=== PATIENT | female | born 1955 | race Caucasian/White ===

== ENCOUNTER 2017-02-21 15:27 | Outpatient (CLI) | payer MEDICAID ==
--- NOTE | 2017-02-23 12:47 | XRAY Report ---
RIGHT FOOT, THREE VIEWS: 02/21/2017 CLINICAL HISTORY: Pain in the right foot. FINDINGS: Mild soft tissue swelling is noted about the dorsal aspect of the right foot. Minimal def ormity is noted on AP projection in the mid shaft of the right fifth metatarsal. On lateral projecti on, a definite oblique fracture line is seen through the mid shaft of the right fifth metatarsal, rep resenting a recent fracture. Mild narrowing of the right first MP joint is seen. Moderate to large plantar calcaneal spur is noted. IMPRESSION: 1. ACUTE TO RECENT RELATIVELY NONDISPLACED OBLIQUE FRACTURE IS SEEN IN THE MID SHAFT OF THE RIGHT FI FTH METATARSAL. 2. MODERATE-SIZED PLANTAR CALCANEAL SPUR. JOB #: [id number] EXT JOB #:[id number]
== END 2017-02-21 15:28 | disposition home or self-care (01) ==
LOC: DI.S 15:27
PROVIDERS: ATTEND Nurse Practitioner Family
DX: S92.354A Nondisplaced fracture of fifth metatarsal bone, right foot, initial encounter for closed fracture (principal); M77.31 Calcaneal spur, right foot

== ENCOUNTER 2017-05-11 08:58 | Outpatient (CLI) | payer MEDICAID ==
--- NOTE | 2017-05-11 11:06 | XRAY Report ---
THREE-VIEW RIGHT FOOT: 05/11/2017 CLINICAL INDICATION: Pain. FINDINGS: AP, lateral, oblique views of the right foot demonstrate interval increase in displacement of 5th metatarsal fracture from 02/21/2017. Callus formation is present. Mild osteoarthritis is ag ain noted. Plantar calcaneal spurring is seen. IMPRESSION: INTERVAL INCREASE IN DISPLACEMENT OF 5TH METATARSAL FRACTURE, NOW WITH CALLUS FORMATION. JOB #: [id number] EXT JOB #:[id number]
== END 2017-05-11 08:59 | disposition home or self-care (01) ==
LOC: DI.S 08:58
PROVIDERS: ATTEND Nurse Practitioner Family
DX: S92.351D Displaced fracture of fifth metatarsal bone, right foot, subsequent encounter for fracture with routine healing (principal)

== ENCOUNTER 2017-05-31 11:12 | Outpatient (CLI) | payer MEDICAID ==
[2017-05-31 17:57] LABS: BASOPHILS % (AUTO) 0.5 %; EOSINOPHILS # (AUTO) 0.2 10^3/uL (0.0-0.7); EOSINOPHILS % (AUTO) 2.5 %; HCT - HEMATOCRIT 43.7 % (37.0-47.0); HGB - HEMOGLOBIN 14.7 g/dL (12.0-16.0); LYMPHOCYTES # (AUTO) 2.2 10^3/uL (1.5-3.5); LYMPHOCYTES % (AUTO) 35.6 %; MEAN CORPUSCULAR HEMOGLOBIN 30.8 pg (27.0-31.0); MEAN CORPUSCULAR HGB CONC 33.6 g/dL (32.0-36.0); MEAN CORPUSCULAR VOLUME 91.5 fL (81.0-99.0); MEAN PLATELET VOLUME 10.8 fL (7.9-10.8); MONOCYTES # (AUTO) 0.6 10^3/uL (0.0-1.0); MONOCYTES % (AUTO) 9.5 %; NEUTROPHILS # (AUTO) 3.3 10^3/uL (1.5-6.6); NEUTROPHILS % (AUTO) 51.9 %; RED BLOOD COUNT 4.78 10^6/uL (4.20-5.40); RED CELL DISTRIBUTION WIDTH 13.1 % (12.0-15.0); UNCORRECTED WHITE BLOOD COUNT 6.3 x10^3/uL; WHITE BLOOD COUNT 6.3 x10^3/uL (4.8-10.8)
[2017-05-31 18:47] LABS: ALBUMIN/GLOBULIN RATIO 1.4 (1.0-2.2); BILIRUBIN,TOTAL 1.2 mg/dL (0.2-1.0); BUN - BLOOD UREA NITROGEN 14 mg/dL (6-20); CALCIUM 9.2 mg/dL (8.5-10.3); CARBON DIOXIDE - CO2 30 mmol/L (21-32); CHLORIDE 102 mmol/L (101-111); CHOL/HDL RATIO 5.8 (<4.4); CHOLESTEROL 203 mg/dL; CREATININE 0.7 mg/dL (0.4-1.0); GFR - MDRD 85 (>89); GLUCOSE 91 mg/dL (70-100); HDL CHOLESTEROL 35 mg/dL; LDL/HDL RATIO 3.7 (<4.4); POTASSIUM 3.4 mmol/L (3.5-5.0); SODIUM 140 mmol/L (135-145); TOTAL PROTEIN 6.9 g/dL (6.7-8.2); TRIGLYCERIDES 198 mg/dL; VLDL CHOLESTEROL 40 mg/dL
== END 2017-05-31 11:13 | disposition home or self-care (01) ==
LOC: LAB.F 11:12
PROVIDERS: ATTEND Nurse Practitioner Family
DX: E78.5 Hyperlipidemia, unspecified (principal); I10 Essential (primary) hypertension
CPT/HCPCS: 36415; 80053; 80061; 84443; 85025

== ENCOUNTER 2018-02-02 12:06 | Outpatient (CLI) | payer MEDICAID ==
--- NOTE | 2018-02-02 12:30 | XRAY Report ---
Procedure Date: 02/02/2018 Accession Number: [id number] / [id number] Procedure: XRS - Knee 4 View RT CPT Code: FULL RESULT: EXAM: Knee 4 View RT DATE: 02/02/2018 12:22 PM CLINICAL HISTORY: PAIN IN RIGHT KNEE COMPARISON: None. TECHNIQUE: 4 views. FINDINGS: Bones: Normal. No fractures or bone lesions. Joints: Normal. No effusion. No subluxations. Soft Tissues: Normal. No soft tissue swelling. IMPRESSION: Normal knee radiography. RADIA
== END 2018-02-02 12:07 | disposition home or self-care (01) ==
LOC: DI.S 12:06
PROVIDERS: ATTEND Nurse Practitioner Family
DX: M25.561 Pain in right knee (principal)

== ENCOUNTER 2018-08-24 08:07 | Outpatient (CLI) | payer MEDICAID ==
[2018-08-24 10:39] LABS: BASOPHILS # (AUTO) 0.1 10^3/uL (0.0-0.1); BASOPHILS % (AUTO) 0.8 %; EOSINOPHILS # (AUTO) 0.2 10^3/uL (0.0-0.7); EOSINOPHILS % (AUTO) 3.1 %; HGB - HEMOGLOBIN 14.9 g/dL (12.0-16.0); LYMPHOCYTES # (AUTO) 2.5 10^3/uL (1.5-3.5); LYMPHOCYTES % (AUTO) 33.8 %; MEAN CORPUSCULAR HGB CONC 35.5 g/dL (32.0-36.0); MEAN PLATELET VOLUME 11.2 fL (7.9-10.8); MONOCYTES # (AUTO) 0.7 10^3/uL (0.0-1.0); MONOCYTES % (AUTO) 9.7 %; NEUTROPHILS # (AUTO) 3.9 10^3/uL (1.5-6.6); NEUTROPHILS % (AUTO) 52.6 %; PLT - PLATELET COUNT 237 10^3/uL (130-450); RED BLOOD COUNT 4.67 10^6/uL (4.20-5.40); RED CELL DISTRIBUTION WIDTH 13.2 % (12.0-15.0); WHITE BLOOD COUNT 7.5 x10^3/uL (4.8-10.8)
[2018-08-24 10:43] LABS: ALBUMIN 4.1 g/dL (3.2-5.5); ALBUMIN/GLOBULIN RATIO 1.3 (1.0-2.2); ALKALINE PHOSPHATASE 110 IU/L (42-121); ALT ALANINE AMINOTRANSFERASE 29 IU/L (10-60); AST ASPARTATE AMINOTRANSFERASE 28 IU/L (10-42); BILIRUBIN,TOTAL 1.3 mg/dL (0.2-1.0); BUN - BLOOD UREA NITROGEN 18 mg/dL (6-20); CALCIUM 9.4 mg/dL (8.5-10.3); CARBON DIOXIDE - CO2 30 mmol/L (21-32); CHLORIDE 97 mmol/L (101-111); CHOL/HDL RATIO 5.4 (<4.4); CHOLESTEROL 210 mg/dL; CREATININE 0.8 mg/dL (0.4-1.0); GFR - MDRD 73 (>89); GLUCOSE 114 mg/dL (70-100); HDL CHOLESTEROL 39 mg/dL; LDL CHOLESTEROL,CALCULATED 119 mg/dL; LDL/HDL RATIO 3.1 (<4.4); SODIUM 138 mmol/L (135-145); TOTAL PROTEIN 7.2 g/dL (6.7-8.2); VLDL CHOLESTEROL 52 mg/dL
== END 2018-08-24 08:08 | disposition home or self-care (01) ==
LOC: LAB.F 08:07
PROVIDERS: ATTEND Nurse Practitioner Family
DX: I10 Essential (primary) hypertension (principal); E78.5 Hyperlipidemia, unspecified
CPT/HCPCS: 36415; 80053; 80061; 83721; 84443; 85025

== ENCOUNTER 2018-11-29 14:00 | Outpatient (CLI) | payer MEDICAID | END 2018-11-29 14:01 | disposition home or self-care (01) | LOC: LAB.F 14:00 | PROVIDERS: ATTEND Nurse Practitioner Family | DX: Z79.899 Other long term (current) drug therapy (principal) | CPT/HCPCS: 36415; 82306 ==

== ENCOUNTER 2018-12-19 13:03 | Emergency (ER) | payer MEDICAID ==
[2018-12-19 13:28] LABS: BASOPHILS # (AUTO) 0.1 10^3/uL (0.0-0.1); BASOPHILS % (AUTO) 0.8 %; EOSINOPHILS # (AUTO) 0.1 10^3/uL (0.0-0.7); EOSINOPHILS % (AUTO) 1.4 %; HGB - HEMOGLOBIN 14.7 g/dL (12.0-16.0); LYMPHOCYTES # (AUTO) 2.7 10^3/uL (1.5-3.5); LYMPHOCYTES % (AUTO) 40.5 %; MEAN CORPUSCULAR HEMOGLOBIN 31.4 pg (27.0-31.0); MEAN CORPUSCULAR VOLUME 89.7 fL (81.0-99.0); MEAN PLATELET VOLUME 10.3 fL (7.9-10.8); MONOCYTES # (AUTO) 0.7 10^3/uL (0.0-1.0); MONOCYTES % (AUTO) 10.2 %; NEUTROPHILS # (AUTO) 3.1 10^3/uL (1.5-6.6); NEUTROPHILS % (AUTO) 47.1 %; PLT - PLATELET COUNT 254 10^3/uL (130-450); RED BLOOD COUNT 4.67 10^6/uL (4.20-5.40); RED CELL DISTRIBUTION WIDTH 12.9 % (12.0-15.0); WHITE BLOOD COUNT 6.6 x10^3/uL (4.8-10.8)
--- NOTE | 2018-12-19 13:28 | ED Physician Documentation ---
History of Present Illness - Stated complaint Stated Complaint: SOA/UPPER ABD PX - Chief complaint Chief Complaint: Cardiac - History obtained from History obtained from: Patient - History of Present Illness Pain level max: 4 Pain level now: 0 Improved by: nothing Worsened by: palpation - Additonal information Additional information: 4 days ago states tasted "blood" in her mouth. then felt lightheaded 3 days ago. yesterday started having epigastric pain. Was better last night and today states "I feel off". Has had nausea. but no vomiting. normal BM. Decreased appetite. H/o gastric bypass 20 years ago. take celebrex daily. Review of Systems Ten Systems: 10 systems reviewed and negative Constitutional: denies: Fever, Chills Nose: denies: Rhinorrhea / runny nose, Congestion Throat: denies: Sore throat GI: denies: Vomiting, Hematemesis, Bloody / black stool Skin: denies: Rash Musculoskeletal: denies: Neck pain, Back pain Neurologic: denies: Headache PD PAST MEDICAL HISTORY - Past Medical History Cardiovascular: None Endocrine/Autoimmune: None Psych: None Musculoskeletal: Osteoarthritis - Past Surgical History Ortho: Other - Present Medications Home Medications: Ambulatory Orders Medication Instructions Recorded Confirmed Esomeprazole Magnesium [Nexium 20 mg PO DAILY #30 capsule. 12/19/18 24Hr] Famotidine [Pepcid] 20 mg PO BID #60 tablet 12/19/18 - Allergies Allergies/Adverse Reactions: Allergies Allergy/AdvReac Type Severity Reaction Status Date / Time No Known Drug Allergies Allergy Verified 12/19/18 13:17 PD ED PE NORMAL - Vitals Vital signs reviewed: Yes - General General: Alert and oriented X 3, No acute distress, Well developed/nourished - HEENT HEENT: PERRL, Moist mucous membranes - Neck Neck: Supple, no meningeal sign - Cardiac Cardiac: RRR, Strong equal pulses - Respiratory Respiratory: No respiratory distress, Clear bilaterally - Abdomen Abdomen: Soft, Non distended, Other (TTP epigastric. no peritoneal signs.) - Back Back: No spinal TTP - Derm Derm: Warm and dry - Extremities Extremities: No edema, No calf tenderness / cord - Neuro Neuro: Alert and oriented X 3 - Psych Psych: Normal mood, Normal affect Results - Vitals Vitals: Vital Signs - 24 hr 12/19/18 12/19/18 12/19/18 13:09 13:20 13:54 Temperature 36.8 C Heart Rate 103 H 82 Respiratory 14 19 18 Rate Blood Pressure 168/76 H 140/78 H O2 Saturation 94 99 12/19/18 12/19/18 14:35 15:34 Temperature Heart Rate 78 76 Respiratory 18 16 Rate Blood Pressure 137/78 H 134/69 H O2 Saturation 95 97 Oxygen O2 Source Room air - EKG (time done) 1307 Rate: Rate (enter#) (105) Rhythm: Sinus tachycardia [place]: Normal Intervals: Normal PA QRS: Normal Ischemia: Non specific changes Compare to prior EKG: Old EKG unavailable - Labs Labs: Laboratory Tests 12/19/18 12/19/18 12/19/18 13:19 13:19 13:19 WBC 6.6 RBC 4.67 Hgb 14.7 Hct 41.9 MCV 89.7 MCH 31.4 H MCHC 35.0 RDW 12.9 Plt Count 254 MPV 10.3 Neut # (Auto) 3.1 Lymph # (Auto) 2.7 Giles # (Auto) 0.7 Eos # (Auto) 0.1 Baso # (Auto) 0.1 Absolute Nucleated RBC 0.01 Nucleated RBC % 0.1 Sodium 136 Potassium 2.7 L Chloride 94 L Carbon Dioxide 29 Anion Gap 13.0 BUN 16 Creatinine 0.8 Estimated GFR (MDRD) 73 L Glucose 127 H Calcium 9.4 Total Bilirubin 1.4 H AST 32 ALT 37 Alkaline Phosphatase 96 Troponin I < 0.04 Total Protein 7.0 Albumin 4.3 Globulin 2.7 Albumin/Globulin Ratio 1.6 Lipase 34 Urine Color Urine Clarity Urine pH Ur Specific [place] Urine Protein Urine Glucose (UA) Urine Ketones Urine Occult Blood Urine Nitrite Urine Bilirubin Urine Urobilinogen Ur Leukocyte Esterase Ur Microscopic Review Urine Culture Comments 12/19/18 14:01 WBC RBC Hgb Hct MCV MCH MCHC RDW Plt Count MPV Neut # (Auto) Lymph # (Auto) Giles # (Auto) Eos # (Auto) Baso # (Auto) Absolute Nucleated RBC Nucleated RBC % Sodium Potassium Chloride Carbon Dioxide Anion Gap BUN Creatinine Estimated GFR (MDRD) Glucose Calcium Total Bilirubin AST ALT Alkaline Phosphatase Troponin I Total Protein Albumin Globulin Albumin/Globulin Ratio Lipase Urine Color YELLOW Urine Clarity CLEAR Urine pH 8.0 H Ur Specific [place] 1.010 Urine Protein NEGATIVE Urine Glucose (UA) NEGATIVE Urine Ketones NEGATIVE Urine Occult Blood NEGATIVE Urine Nitrite NEGATIVE Urine Bilirubin NEGATIVE Urine Urobilinogen 1 (NORMAL) Ur Leukocyte Esterase NEGATIVE Ur Microscopic Review NOT INDICATED Urine Culture Comments NOT INDICATED - Rads (name of study) cxr Radiology: Prelim report reviewed, EMP read contemporaneously, See rad report (No acute disease in the chest. ) PD MEDICAL DECISION MAKING - ED course Complexity details: reviewed results, re-evaluated patient, considered differential, d/w patient ED course: 63-year-old female presents to the emergency department with what sounds like peptic ulcer disease. No acute findings for ACS. No evidence of PE. No evidence of aortic dissection. Symptoms resolved in the emergency department. Tolerating p.o. without difficulty. Will place on a PPI and H2 dutch. We will have her follow-up with her doctor for further care. Patient counseled regarding signs and symptoms for which I believe and urgent re-evaluation would be necessary. Patient with good understanding of and agreement to plan and is comfortable going home at this time This document was made in part using voice recognition software. While efforts are made to proofread this document, sound alike and grammatical errors may occur. Departure - Departure Disposition: 01 Home, Self Care Clinical Impression: Peptic ulcer Condition: Good Instructions: ED PUD Vs Gastritis Follow-Up: Catalina Piazrro ARNP [Primary Care Provider] - Within 1 week Prescriptions: Esomeprazole Magnesium [Nexium 24Hr] 20 mg PO DAILY #30 capsule. Famotidine [Pepcid] 20 mg PO BID #60 tablet Comments: Use the medications as prescribed. Return if you worsen. Follow-up with your doctor for further evaluation and care. Discharge Date/Time: 12/19/18 15:35
[2018-12-19] MEDS ORDERED: PANTOPRAZOLE 40 MG VIAL IVP STA (13:30)
[2018-12-19 13:38] LABS: ALBUMIN 4.3 g/dL (3.2-5.5); ALBUMIN/GLOBULIN RATIO 1.6 (1.0-2.2); BILIRUBIN,TOTAL 1.4 mg/dL (0.2-1.0); CALCIUM 9.4 mg/dL (8.5-10.3); CREATININE 0.8 mg/dL (0.4-1.0)
[2018-12-19] MEDS ORDERED: MAG HYDROX/AL HYDROX/SIMETH 30 ML UDC PO STA (14:05)
[2018-12-19] MEDS ORDERED: SUCRALFATE 1 GM/10 ML UDC PO STA (14:05)
[2018-12-19] MEDS ORDERED: LIDOCAINE VISCOUS 2% 15 ML UDC MM STA (14:05)
[2018-12-19 14:13] LABS: BILIRUBIN,URINE NEGATIVE (NEGATIVE); GLUCOSE, URINE (UA) NEGATIVE (NEGATIVE); KETONES,URINE (UA) NEGATIVE (NEGATIVE); LEUKOCYTE ESTERASE, URINE NEGATIVE (NEGATIVE); NITRITE,URINE NEGATIVE (NEGATIVE); OCCULT BLOOD,URINE NEGATIVE (NEGATIVE); PROTEIN,URINE NEGATIVE (NEGATIVE); UROBILINOGEN,URINE 1 (NORMAL) E.U./dL (NORMAL)
[2018-12-19 14:14] LABS: CLARITY,URINE CLEAR (CLEAR)
[2018-12-19] MEDS ORDERED: POTASSIUM CHLORIDE 20 MEQ TABLET PO STA (14:18)
--- NOTE | 2018-12-19 14:26 | XRAY Report ---
Reason: Chest Pain Procedure Date: 12/19/2018 Accession Number: [id number] / [id number] Procedure: XR - Chest 1 View X-Ray CPT Code: 66044 FULL RESULT: EXAM: CHEST RADIOGRAPHY EXAM DATE: 12/19/2018 02:13 PM. CLINICAL HISTORY: Chest Pain. COMPARISON: None. TECHNIQUE: 1 view. FINDINGS: Lungs/Pleura: No focal opacities evident. No pleural effusion. No pneumothorax. Mediastinum: Heart size is normal. Aortic atherosclerosis. Other: None. IMPRESSION: 1. No acute disease in the chest. RADIA
[2018-12-19] MEDS ORDERED: SODIUM CHLORIDE 0.9% 1,000 ML IV ONE (14:39)
[2018-12-19 15:35] VITALS: BP 134/69
== END 2018-12-19 15:35 | disposition home or self-care (01) ==
LOC: ED 13:03
DX: K27.9 Peptic ulcer, site unspecified, unspecified as acute or chronic, without hemorrhage or perforation (principal)
CPT/HCPCS: 36415; 71045; 80053; 81003; 83690; 84484; 85025; 93005; 96374; 99283; 99284; A9270; 81001; 87086

== ENCOUNTER 2018-12-27 14:40 | Outpatient (CLI) | payer MEDICAID | END 2018-12-27 23:59 | disposition home or self-care (01) | LOC: LAB.F 14:40 | PROVIDERS: ATTEND Nurse Practitioner Family | DX: E87.6 Hypokalemia (principal) | CPT/HCPCS: 36415; 84132 ==

== ENCOUNTER 2019-01-04 13:16 | Outpatient (CLI) | payer MEDICAID ==
[2019-01-04 17:30] LABS: BUN - BLOOD UREA NITROGEN 19 mg/dL (6-20); CARBON DIOXIDE - CO2 28 mmol/L (21-32); CHLORIDE 101 mmol/L (101-111); CHOL/HDL RATIO 4.8 (<4.4); CHOLESTEROL 181 mg/dL; CREATININE 0.7 mg/dL (0.4-1.0); GFR - MDRD 85 (>89); GLUCOSE 86 mg/dL (70-100); HDL CHOLESTEROL 38 mg/dL; LDL CHOLESTEROL,CALCULATED 118 mg/dL; LDL/HDL RATIO 3.1 (<4.4); SODIUM 140 mmol/L (135-145); VLDL CHOLESTEROL 25 mg/dL
[2019-01-04 17:58] LABS: HB2 TOTAL 14.5 g/dL; HEMOGLOBIN A1C 0.59 g/dL; HEMOGLOBIN A1C % 5.9 % (4.6-6.2)
== END 2019-01-04 13:17 | disposition home or self-care (01) ==
LOC: LAB.F 13:16
PROVIDERS: ATTEND Nurse Practitioner Family
DX: E78.5 Hyperlipidemia, unspecified (principal)
CPT/HCPCS: 36415; 80048; 80061; 83036; 83721

== ENCOUNTER 2019-05-02 12:36 | Outpatient (CLI) | payer MEDICAID ==
--- NOTE | 2019-05-06 13:20 | Ultrasound Report ---
Reason: POSTMENOPAUSAL BLEEDING Procedure Date: 05/02/2019 Accession Number: [id number] / [id number] Procedure: US - Pelvic w/Transvaginal CPT Code: FULL RESULT: EXAM: PELVIC ULTRASOUND EXAM DATE: 05/02/2019 01:22 PM. CLINICAL HISTORY: POSTMENOPAUSAL BLEEDING. COMPARISON: None. TECHNIQUE: Realtime transabdominal pelvic scan performed to identify the uterus and adnexa and as an overview of other pelvic structures, followed by transvaginal scan to provide greater detail of the uterus and adnexa, with static image documentation. FINDINGS: Uterus: 6.5 x 4.1 x 5.1 cm, volume 71 cc. Anteverted position. Normal overall size and echotexture. Masses: Small intramural/subserosal fibroids are seen measuring 1.4 cm in the anterior fundus region and 2.0 cm in the posterior mid uterine segment. Endometrium: 5 mm. Normal. Cervix: Unremarkable. Right Ovary: Not visualized, presumably atrophic and obscured by overlying bowel gas. No adnexal abnormality demonstrated. Left Ovary: 1.7 x 1.5 x 1.1 cm, volume 1.5 cc. Normal echotexture and blood flow. Free Fluid: None. Other: None. IMPRESSION: 1. Negative exam. No abnormal endometrial thickening or mass. 2. Small intramural/subserosal uterine fibroid seen. No submucosal fibroid identified. 3. Normal left ovary. Right ovary not visualized, likely atrophic. RADIA
== END 2019-05-02 12:37 | disposition home or self-care (01) ==
LOC: DI 12:36
PROVIDERS: ATTEND Obstetrics & Gynecology
DX: N95.0 Postmenopausal bleeding (principal); D25.1 Intramural leiomyoma of uterus
CPT/HCPCS: 76830; 76856

== ENCOUNTER 2019-06-01 09:37 | Outpatient (CLI) | payer MEDICAID ==
--- NOTE | 2019-06-01 15:56 | DEXA Report ---
Reason: POSTMENOPAUSAL Procedure Date: 06/01/2019 Accession Number: [id number] / [id number] Procedure: DEX - Dexa Spine and/or Hip CPT Code: FULL RESULT: EXAM: Dexa Spine and/or Hip DATE: 06/01/2019 9:52 AM CLINICAL HISTORY: POSTMENOPAUSAL TECHNIQUE: Dual energy x-ray absorptiometry (DXA) was performed on a Keenjar System. Regions measured are the AP Spine, femoral neck, and if needed forearm. COMPARISON: None. In accordance with the International Society for Clinical Densitometry (ISCD) guidelines, data from previous exams may be reanalyzed using current recommendations and techniques. This is done to allow a more accurate basis for comparison with the current study. FINDINGS: The data for the lumbar spine is as follows: BMD (g/cm/cm) T-SCORE Z-SCORE REGION L1 0.987 -1.2 -0.9 L2 1.290 0.8 1.0 L3 1.078 -1.0 -0.8 L4 0.931 -2.2 -2.0 TOTAL 1.073 -0.9 -0.6 NOTE: All evaluable vertebrae are used for classification The data for the hip is as follows: BMD (g/cm/cm) T-SCORE Z-SCORE REGION Neck 0.808 -1.7 -1.0 TOTAL 0.894 -0.9 -0.7 NOTE: The femoral neck or total proximal femur, whichever is lowest, is used for classification. IMPRESSION: THE WHO CLASSIFICATION BASED ON THE INTERNATIONAL REFERENCE STANDARD IS OSTEOPENIA, REFERENCE LEFT FEMORAL NECK. THE FRACTURE RISK IS INCREASED. RECOMMENDATION: Patients with diagnosis of osteoporosis or osteopenia should have regular bone mineral density assessment. For those eligible for Medicare, routine testing is allowed once every 2 years. Testing frequency can be increased for patients who have rapidly progressing disease or for those who are receiving medical therapy to restore bone mass. COMMENT: World Health Organization (WHO) definitions for osteoporosis and osteopenia: NORMAL BMD: T-score at -1.0 or higher, fracture risk is low OSTEOPENIA BMD: T-score between -1.0 and -2.5, fracture risk is increased. OSTEOPOROSIS BMD: T-score at -2.5 or lower, fracture risk is high. National Osteoporosis Foundation recommends: 1. Obtain adequate dietary calcium (at least 1200 mg per day) and vitamin D (400-800 international units per day). 2. Participate, as appropriate, in regular weightbearing and muscle-strengthening exercise. 3. Avoid tobacco use and reduce alcohol and caffeine intake. 4. For more detailed information see the website at www.NOF.org.
== END 2019-06-01 09:38 | disposition home or self-care (01) ==
LOC: DI 09:37
PROVIDERS: ATTEND Physician Assistant Medical
DX: M85.88 Other specified disorders of bone density and structure, other site (principal)
CPT/HCPCS: 77080

== ENCOUNTER 2019-06-01 09:38 | Outpatient (CLI) | payer MEDICAID ==
--- NOTE | 2019-06-01 15:19 | Mammography Report ---
Reason: ROUTINE MAMMO Procedure Date: 06/01/2019 Accession Number: [id number] / [id number] Procedure: VANCE - Screening Mammo w/Wilfred CPT Code: FULL RESULT: EXAM: Screening Mammo w/Wilfred DATE: 06/01/2019 10:53 AM CLINICAL HISTORY: Routine screening TECHNIQUE: (B) - Bilateral CC and MLO views were obtained. COMPARISON: 05/03/2016, 10/25/2014, 09/10/2009 PARENCHYMAL PATTERN: (A) - The breasts demonstrate scattered fibroglandular densities bilaterally. FINDINGS: No significant interval change. There are no suspicious masses, calcifications, or areas of distortion. IMPRESSION: Negative examination. BI-RADS category 1. RECOMMENDATION: (ANNUAL) - Recommend routine annual screening mammography. BI-RADS CATEGORY: (1) - Negative. STANDARD QUALIFYING STATEMENTS: 1. This examination was not reviewed with the aid of Computer-Aided Detection (CAD). 2. A negative or benign imaging report should not preclude biopsy if clinically suspicious findings are present. 3. Dense breasts may obscure an underlying neoplasm. 4. This examination was reviewed with the aid of 3D breast imaging (tomosynthesis).
== END 2019-06-01 09:39 | disposition home or self-care (01) ==
LOC: DI 09:38
PROVIDERS: ATTEND Physician Assistant Medical
DX: Z12.31 Encounter for screening mammogram for malignant neoplasm of breast (principal)
CPT/HCPCS: 77063; 77067

== ENCOUNTER 2019-06-06 12:16 | Outpatient (CLI) | payer MEDICAID ==
[2019-06-06 17:54] LABS: BASOPHILS # (AUTO) 0.1 10^3/uL (0.0-0.1); EOSINOPHILS # (AUTO) 0.1 10^3/uL (0.0-0.7); EOSINOPHILS % (AUTO) 2.3 %; HGB - HEMOGLOBIN 14.6 g/dL (12.0-16.0); LYMPHOCYTES # (AUTO) 2.1 10^3/uL (1.5-3.5); LYMPHOCYTES % (AUTO) 34.5 %; MEAN CORPUSCULAR HEMOGLOBIN 31.7 pg (27.0-31.0); MEAN CORPUSCULAR HGB CONC 33.6 g/dL (32.0-36.0); MEAN CORPUSCULAR VOLUME 94.1 fL (81.0-99.0); MEAN PLATELET VOLUME 12.4 fL (7.9-10.8); MONOCYTES # (AUTO) 0.6 10^3/uL (0.0-1.0); MONOCYTES % (AUTO) 9.1 %; NEUTROPHILS # (AUTO) 3.3 10^3/uL (1.5-6.6); NEUTROPHILS % (AUTO) 52.8 %; PLT - PLATELET COUNT 281 10^3/uL (130-450); RED BLOOD COUNT 4.61 10^6/uL (4.20-5.40); RED CELL DISTRIBUTION WIDTH 13.2 % (12.0-15.0); WHITE BLOOD COUNT 6.2 x10^3/uL (4.8-10.8)
[2019-06-06 18:30] LABS: % IRON SATURATION 38 % (20-50); ALBUMIN 4.2 g/dL (3.2-5.5); ALBUMIN/GLOBULIN RATIO 1.3 (1.0-2.2); ALKALINE PHOSPHATASE 92 IU/L (42-121); ALT ALANINE AMINOTRANSFERASE 23 IU/L (10-60); AST ASPARTATE AMINOTRANSFERASE 19 IU/L (10-42); BILIRUBIN,TOTAL 1.1 mg/dL (0.2-1.0); BUN - BLOOD UREA NITROGEN 23 mg/dL (6-20); CALCIUM 9.6 mg/dL (8.5-10.3); CARBON DIOXIDE - CO2 32 mmol/L (21-32); CHLORIDE 98 mmol/L (101-111); CHOL/HDL RATIO 4.9 (<4.4); CHOLESTEROL 217 mg/dL; CREATININE 0.7 mg/dL (0.4-1.0); GFR - MDRD 85 (>89); GLUCOSE 98 mg/dL (70-100); HDL CHOLESTEROL 44 mg/dL; IRON 138 ug/dL (28-170); LDL CHOLESTEROL,CALCULATED 142 mg/dL; LDL/HDL RATIO 3.2 (<4.4); SODIUM 139 mmol/L (135-145); TOTAL IRON BINDING CAPACITY 367 ug/dL (250-450); TOTAL PROTEIN 7.4 g/dL (6.7-8.2); TRANSFERRIN 262 mg/dL (192-382); VLDL CHOLESTEROL 31 mg/dL
[2019-06-06 18:43] LABS: FERRITIN 94.3 ng/mL (11.0-306.8)
[2019-06-06 20:37] LABS: FREE T4 (FREE THYROXINE) 0.61 ng/dL (0.58-1.64)
== END 2019-06-06 12:17 | disposition home or self-care (01) ==
LOC: LAB.S 12:16
PROVIDERS: ATTEND Physician Assistant Medical
DX: E87.6 Hypokalemia (principal); E78.5 Hyperlipidemia, unspecified; E55.9 Vitamin D deficiency, unspecified; Z98.84 Bariatric surgery status; I10 Essential (primary) hypertension
CPT/HCPCS: 36415; 80053; 80061; 82306; 82607; 82728; 83540; 83721; 84439; 84443; 84466; 85025

== ENCOUNTER 2019-06-29 11:25 | Outpatient (CLI) | payer MEDICAID | END 2019-06-29 11:26 | disposition home or self-care (01) | LOC: LAB.S 11:25 | PROVIDERS: ATTEND Physician Assistant Medical | DX: E87.6 Hypokalemia (principal) | CPT/HCPCS: 36415; 84132 ==

== ENCOUNTER 2019-07-11 13:36 | Outpatient (CLI) | payer MEDICAID | END 2019-07-11 13:37 | disposition home or self-care (01) | LOC: LAB.S 13:36 | PROVIDERS: ATTEND Physician Assistant Medical | DX: E87.6 Hypokalemia (principal) | CPT/HCPCS: 36415; 84132 ==

== ENCOUNTER 2019-08-16 13:22 | Outpatient (CLI) | payer MEDICAID ==
[2019-08-16 17:52] LABS: CALCIUM 9.3 mg/dL (8.5-10.3); CREATININE 0.7 mg/dL (0.4-1.0)
== END 2019-08-16 13:23 | disposition home or self-care (01) ==
LOC: LAB.S 13:22
PROVIDERS: ATTEND Registered Nurse
DX: E87.6 Hypokalemia (principal); F31.81 Bipolar II disorder
CPT/HCPCS: 36415; 80048; 80175

== ENCOUNTER 2020-03-17 08:00 | Outpatient (CLI) | payer MEDICAID ==
--- NOTE | 2020-03-17 10:48 | XRAY Report ---
PROCEDURE: Chest 2 View X-Ray INDICATIONS: SHORTNESS OF BREATH TECHNIQUE: 2 view(s) of the chest. COMPARISON: 12/19/2018. FINDINGS: Surgical changes and devices: None. Lungs and pleura: No pleural effusions or pneumothorax. Lungs are clear. Mediastinum: Mediastinal contours are normal. Heart size is normal. Bones and chest wall: No suspicious bony abnormalities. Soft tissues appear unremarkable. IMPRESSION: No acute cardiopulmonary disease process. Reviewed by: Margie Mullins MD, PhD on 03/17/2020 10:47 AM PDT Approved by: Margie Mullins MD, PhD on 03/17/2020 10:47 AM PDT Station ID: [id number]
--- NOTE | 2020-03-17 10:51 | XRAY Report ---
PROCEDURE: Ribs 2 View RT INDICATIONS: RIGHT RIB PAIN TECHNIQUE: Pre- views of the right ribs were acquired. COMPARISON: Chest x-ray 03/17/2020 FINDINGS: Surgical changes and devices: Cholecystectomy clips and numerous clips at the gastroesophageal juncti on. Bones and chest wall: Anterior right eighth rib fracture. No suspicious bony lesions. Overlying soft tissues appear unremarkable. Lungs and pleura: The visualized lung appears clear. No pleural effusions or pneumothorax are visib le. IMPRESSION: Mildly displaced anterior right eighth rib fracture. Reviewed by: Margie Mullins MD, PhD on 03/17/2020 10:49 AM PDT Approved by: Margie Mullins MD, PhD on 03/17/2020 10:49 AM PDT Station ID: [id number]
== END 2020-03-17 23:59 | disposition home or self-care (01) ==
LOC: DI.S 08:00
PROVIDERS: ATTEND Physician Assistant Medical
DX: S22.31XA Fracture of one rib, right side, initial encounter for closed fracture (principal); R06.02 Shortness of breath
CPT/HCPCS: 71046

== ENCOUNTER 2020-11-07 16:49 | Outpatient (CLI) | payer MEDICAID | END 2020-11-07 16:50 | disposition home or self-care (01) | LOC: COV 16:49 | PROVIDERS: ATTEND Family Medicine | DX: Z20.822 Contact with and (suspected) exposure to COVID-19 (principal) ==

== ENCOUNTER 2021-06-05 11:26 | Outpatient (CLI) | payer MEDICAID ==
[2021-06-05 15:17] LABS: BASOPHILS # (AUTO) 0.1 10^3/uL (0.0-0.1); EOSINOPHILS # (AUTO) 0.2 10^3/uL (0.0-0.7); EOSINOPHILS % (AUTO) 2.9 %; HCT - HEMATOCRIT 45.7 % (37.0-47.0); HGB - HEMOGLOBIN 14.9 g/dL (12.0-16.0); LYMPHOCYTES # (AUTO) 1.7 10^3/uL (1.5-3.5); MEAN CORPUSCULAR HEMOGLOBIN 31.1 pg (27.0-31.0); MEAN CORPUSCULAR HGB CONC 32.6 g/dL (32.0-36.0); MEAN CORPUSCULAR VOLUME 95.4 fL (81.0-99.0); MEAN PLATELET VOLUME 12.5 fL (7.9-10.8); MONOCYTES # (AUTO) 0.6 10^3/uL (0.0-1.0); MONOCYTES % (AUTO) 9.3 %; NEUTROPHILS # (AUTO) 3.5 10^3/uL (1.5-6.6); NEUTROPHILS % (AUTO) 58.5 %; PLT - PLATELET COUNT 251 10^3/uL (130-450); RED BLOOD COUNT 4.79 10^6/uL (4.20-5.40); RED CELL DISTRIBUTION WIDTH 13.2 % (12.0-15.0); WHITE BLOOD COUNT 5.9 x10^3/uL (4.8-10.8)
[2021-06-05 15:52] LABS: ALBUMIN 4.5 g/dL (3.2-5.5); ALBUMIN/GLOBULIN RATIO 1.6 (1.0-2.2); ALKALINE PHOSPHATASE 110 IU/L (42-121); ALT ALANINE AMINOTRANSFERASE 17 IU/L (10-60); AST ASPARTATE AMINOTRANSFERASE 18 IU/L (10-42); BUN - BLOOD UREA NITROGEN 21 mg/dL (6-20); CALCIUM 9.5 mg/dL (8.5-10.3); CARBON DIOXIDE - CO2 30 mmol/L (21-32); CHLORIDE 102 mmol/L (101-111); CHOL/HDL RATIO 4.9 (<4.4); CHOLESTEROL 229 mg/dL; CREATININE 0.7 mg/dL (0.4-1.0); GFR - MDRD 84 (>89); GLUCOSE 97 mg/dL (70-100); HDL CHOLESTEROL 47 mg/dL; LDL CHOLESTEROL,CALCULATED 157 mg/dL; LDL/HDL RATIO 3.3 (<4.4); SODIUM 140 mmol/L (135-145); TOTAL PROTEIN 7.4 g/dL (6.7-8.2); TRIGLYCERIDES 126 mg/dL; VLDL CHOLESTEROL 25 mg/dL
[2021-06-05 15:56] LABS: THYROID STIMULATING HORMONE 0.46 uIU/mL (0.34-5.60)
== END 2021-06-05 11:27 | disposition home or self-care (01) ==
LOC: LAB.S 11:26
PROVIDERS: ATTEND Registered Nurse
DX: E87.8 Other disorders of electrolyte and fluid balance, not elsewhere classified (principal); R94.6 Abnormal results of thyroid function studies; E78.5 Hyperlipidemia, unspecified; I10 Essential (primary) hypertension; F31.81 Bipolar II disorder
CPT/HCPCS: 36415; 80053; 80061; 80175; 83721; 84443; 85025

== ENCOUNTER 2022-10-25 11:12 | Outpatient (CLI) | payer MEDICAID ==
[2022-10-25 14:47] LABS: BASOPHILS # (AUTO) 0.1 10^3/uL (0.0-0.1); BASOPHILS % (AUTO) 0.8 %; EOSINOPHILS # (AUTO) 0.2 10^3/uL (0.0-0.7); EOSINOPHILS % (AUTO) 2.9 %; LYMPHOCYTES # (AUTO) 2.6 10^3/uL (1.5-3.5); LYMPHOCYTES % (AUTO) 39.1 %; MEAN CORPUSCULAR HEMOGLOBIN 30.4 pg (27.0-31.0); MEAN CORPUSCULAR HGB CONC 33.3 g/dL (32.0-36.0); MEAN CORPUSCULAR VOLUME 91.3 fL (81.0-99.0); MEAN PLATELET VOLUME 12.1 fL (7.9-10.8); MONOCYTES # (AUTO) 0.6 10^3/uL (0.0-1.0); MONOCYTES % (AUTO) 8.7 %; NEUTROPHILS # (AUTO) 3.2 10^3/uL (1.5-6.6); NEUTROPHILS % (AUTO) 48.3 %; PLT - PLATELET COUNT 281 10^3/uL (130-450); RED BLOOD COUNT 4.93 10^6/uL (4.20-5.40); RED CELL DISTRIBUTION WIDTH 13.3 % (12.0-15.0); WHITE BLOOD COUNT 6.5 x10^3/uL (4.8-10.8)
[2022-10-25 15:22] LABS: THYROID STIMULATING HORMONE 0.57 uIU/mL (0.34-5.60)
[2022-10-25 15:26] LABS: ALBUMIN 3.9 g/dL (3.2-5.5); ALBUMIN/GLOBULIN RATIO 1.2 (1.0-2.2); ALKALINE PHOSPHATASE 106 IU/L (42-121); ALT ALANINE AMINOTRANSFERASE 23 IU/L (10-60); AST ASPARTATE AMINOTRANSFERASE 20 IU/L (10-42); BILIRUBIN,TOTAL 0.8 mg/dL (0.2-1.0); BUN - BLOOD UREA NITROGEN 24 mg/dL (6-20); CALCIUM 8.9 mg/dL (8.5-10.3); CARBON DIOXIDE - CO2 29 mmol/L (21-32); CHLORIDE 104 mmol/L (101-111); CHOL/HDL RATIO 4.9 (<4.4); CHOLESTEROL 212 mg/dL; CREATININE 0.8 mg/dL (0.4-1.0); GFR - MDRD 72 (>89); GLUCOSE 146 mg/dL (70-100); HDL CHOLESTEROL 43 mg/dL; LDL CHOLESTEROL,CALCULATED 137 mg/dL; LDL/HDL RATIO 3.2 (<4.4); POTASSIUM 3.3 mmol/L (3.5-5.0); SODIUM 139 mmol/L (135-145); TOTAL PROTEIN 7.1 g/dL (6.7-8.2); TRIGLYCERIDES 158 mg/dL; VLDL CHOLESTEROL 32 mg/dL
== END 2022-10-25 11:13 | disposition home or self-care (01) ==
LOC: LAB.S 11:12
PROVIDERS: ATTEND Registered Nurse
DX: I10 Essential (primary) hypertension (principal); E78.5 Hyperlipidemia, unspecified; Z79.899 Other long term (current) drug therapy
CPT/HCPCS: 36415; 80053; 80061; 80175; 83721; 84443; 85025

== ENCOUNTER 2023-02-17 08:00 | Outpatient (CLI) | payer MEDICAID | END 2023-02-17 23:59 | disposition home or self-care (01) | LOC: LAB.S 08:00 | PROVIDERS: ATTEND Physician Assistant | DX: S80.869A Insect bite (nonvenomous), unspecified lower leg, initial encounter (principal); L08.89 Other specified local infections of the skin and subcutaneous tissue | CPT/HCPCS: 87070; 87077; 87181; 87205 ==

== ENCOUNTER 2024-01-27 21:07 | Emergency (ER) | payer MEDICAID, MEDICARE ==
[2024-01-27 21:25] VITALS: BP 182/82; O2SAT 97
--- NOTE | 2024-01-27 22:08 | XRAY Report ---
PROCEDURE: Wrist 3+V RT INDICATIONS: fall TECHNIQUE: 3 views of the wrist were acquired. COMPARISON: Hand radiographs from same day FINDINGS: Bones: There is a palpable dorsal distal radial fracture. No definite scaphoid fracture seen. Diffus e osteopenia. Background degenerative changes. Soft tissues: No suspicious soft tissue calcifications or masses. Moderate dorsal right wrist soft tissue swelling. IMPRESSION: Moderate dorsal right wrist soft tissue swelling with suspected dorsal distal radial fracture. No def inite scaphoid fracture seen. Reviewed by: Ross Manriquez MD on 01/27/2024 10:07 PM PDT Approved by: Ross Manriquez MD on 01/27/2024 10:07 PM PDT Station ID: [id number]
--- NOTE | 2024-01-27 22:09 | XRAY Report ---
PROCEDURE: Hand 3+V RT INDICATIONS: fall TECHNIQUE: 3 views of the hand(s) acquired. COMPARISON: Wrist series from same day. FINDINGS: Bones: Diffuse osteopenia. Mild background degenerative changes of the right hand. Suspected dorsal, distal right radial fracture. Soft tissues: Moderate dorsal right wrist soft tissue swelling. No suspicious soft tissue calcificat ions or masses. IMPRESSION: Moderate dorsal right wrist soft tissue swelling with suspected distal radial fracture. Reviewed by: Ross Manriquez MD on 01/27/2024 10:08 PM PDT Approved by: Ross Manriquez MD on 01/27/2024 10:08 PM PDT Station ID: [id number]
[2024-01-27] MEDS: HYDROcod/ACET 5/325 Prepack 4 PO STA (22:53)
--- NOTE | 2024-01-27 23:01 | ED Physician Documentation ---
History of Present Illness - Stated complaint Stated Complaint: RT WRIST INJ - Chief complaint Chief Complaint: Trauma Ext - History obtained from History obtained from: Patient - History of Present Illness Timing: Today Pain level max: 7 Pain level now: 7 - Additonal information Additional information: 68-year-old female presents to the emergency department after tripping and falling over a dustpan landing on the right wrist. Complains of pain to the right wrist, there is swelling to the dorsum of the right wrist. Worse with movement, better with rest. No numbness or tingling. Review of Systems Musculoskeletal: denies: Neck pain, Back pain Neurologic: denies: Head injury PD PAST MEDICAL HISTORY - Past Medical History Past Medical History: Yes Cardiovascular: None Endocrine/Autoimmune: None Psych: None Musculoskeletal: Osteoarthritis - Past Surgical History Past Surgical History: No Ortho: Other - Present Medications Home Medications: Ambulatory Orders Medication Instructions Recorded Confirmed Esomeprazole Magnesium [Nexium 20 mg PO DAILY #30 capsule. 12/19/18 24Hr] Famotidine [Pepcid] 20 mg PO BID #60 tablet 12/19/18 - Allergies Allergies/Adverse Reactions: Allergies Allergy/AdvReac Type Severity Reaction Status Date / Time No Known Drug Allergies Allergy Verified 12/19/18 13:17 - Social History Does the pt smoke?: No Smoking Status: Never smoker Does the pt drink ETOH?: No Does the pt have substance abuse?: No - Immunizations Immunizations are current?: Yes - POLST Patient has POLST: No PD ED PE NORMAL - Vitals Vital signs reviewed: Yes - General General: Alert and oriented X 3, No acute distress - HEENT HEENT: Atraumatic, PERRL, Moist mucous membranes - Neck Neck: Supple, no meningeal sign, No bony TTP - Cardiac Cardiac: RRR - Respiratory Respiratory: No respiratory distress, Clear bilaterally - Derm Derm: Warm and dry - Extremities Extremities: Other (R wrist - Swelling to the dorsum of the right wrist. No numbness or tingling. There is tenderness over the distal radius. No snuffbox tenderness.) - Neuro Neuro: Alert and oriented X 3 Results - Vitals Vitals: Oxygen O2 Source Room air - Rads (name of study) R wrist xray Relevant Findings:: Final report received, See rad report R hand xray Relevant Findings:: Final report received, See rad report Procedures - Splint (location) - Minor R wrist Splint applied by: Physician Type of splint: Fiberglass, Short arm, Volar cock up Other: Patient tolerated well, No complications, Neurovascular intact, Sling provided PD Medical Decision Making - ED course Complexity details: reviewed results, re-evaluated patient, considered differential, d/w patient ED course: 68-year-old female with suspected distal right radius fracture. Placed in a splint. Given a sling. Will prescribe pain medication for home. Neurovascular intact. No other acute traumatic injuries. No head injury. No neck or back pain. No numbness or tingling. Patient counseled regarding signs and symptoms for which I believe and urgent re-evaluation would be necessary. Patient with good understanding of and agreement to plan and is comfortable going home at this time This document was made in part using voice recognition software. While efforts are made to proofread this document, sound alike and grammatical errors may occur. Departure - Departure Disposition: Home, Self Care Clinical Impression: Distal radius fracture, right Qualifiers: Encounter type: initial encounter Fracture type: closed Fracture morphology: unspecified fracture morphology Qualified Code(s): S52.501A - Unspecified fracture of the lower end of right radius, initial encounter for closed fracture Condition: Good Instructions: ED Fx Forearm Radius Ulna No Redu Requ Follow-Up: Augusta Hawk ARNP [Primary Care Provider] - [facility] [Provider Group] Comments: Please follow-up with orthopedics for further care. Please continue to use the sling along with the splint at home. Contact the orthopedic office on Tuesday for a follow-up appointment. Your x-ray read is below. PROCEDURE: Wrist 3+V RT INDICATIONS: fall TECHNIQUE: 3 views of the wrist were acquired. COMPARISON: Hand radiographs from same day FINDINGS: Bones: There is a palpable dorsal distal radial fracture. No definite scaphoid fracture seen. Diffuse osteopenia. Background degenerative changes. Soft tissues: No suspicious soft tissue calcifications or masses. Moderate dorsal right wrist soft tissue swelling. IMPRESSION: Moderate dorsal right wrist soft tissue swelling with suspected dorsal distal radial fracture. No definite scaphoid fracture seen. Forms: PCP List Discharge Date/Time: 01/27/24 23:26
--- NOTE | 2024-01-30 16:41 | ED Physician Documentation ---
ED Addendum - Addendum Addendum: 01/30/24 16:40 Patient called back today stating that she is still having pain and would like pain medication sent to the pharmacy for her fracture. Will send pain medication to the pharmacy for her. Departure - Departure Disposition: 01 Home, Self Care Clinical Impression: Distal radius fracture, right Qualifiers: Encounter type: initial encounter Fracture type: closed Fracture morphology: unspecified fracture morphology Qualified Code(s): S52.501A - Unspecified fracture of the lower end of right radius, initial encounter for closed fracture Condition: Good Instructions: ED Fx Forearm Radius Ulna No Redu Requ Follow-Up: [facility] [Provider Group] Augusta Hawk ARNP [Primary Care Provider] - Prescriptions: HYDROcod/ACETAM 5/325 [[place] 5/325] 1 - 2 ea PO Q6H PRN #14 tablet PRN Reason: Pain Comments: Please follow-up with orthopedics for further care. Please continue to use the sling along with the splint at home. Contact the orthopedic office on Tuesday for a follow-up appointment. Your x-ray read is below. PROCEDURE: Wrist 3+V RT INDICATIONS: fall TECHNIQUE: 3 views of the wrist were acquired. COMPARISON: Hand radiographs from same day FINDINGS: Bones: There is a palpable dorsal distal radial fracture. No definite scaphoid fracture seen. Diffuse osteopenia. Background degenerative changes. Soft tissues: No suspicious soft tissue calcifications or masses. Moderate dorsal right wrist soft tissue swelling. IMPRESSION: Moderate dorsal right wrist soft tissue swelling with suspected dorsal distal radial fracture. No definite scaphoid fracture seen. Forms: PCP List Discharge Date/Time: 01/27/24 23:26
== END 2024-01-27 23:26 | disposition home or self-care (01) ==
LOC: ED 21:07
DX: S52.501A Unspecified fracture of the lower end of right radius, initial encounter for closed fracture (principal); W19.XXXA Unspecified fall, initial encounter
CPT/HCPCS: 29125; 99283; 99284

== ENCOUNTER 2024-03-16 13:38 | Outpatient (CLI) | payer MEDICARE ==
--- NOTE | 2024-03-16 15:15 | XRAY Report ---
PROCEDURE: Wrist 3+V RT INDICATIONS: COLLES FRACTURE OF RT RADIUS TECHNIQUE: 3 views of the wrist were acquired. COMPARISON: 01/27/2024 FINDINGS: Bones: Continued bony remodeling of the distal radial metadiaphysis fracture, without intra-articula r cortical step off. Soft tissues: No suspicious soft tissue calcifications or masses. IMPRESSION: Continued interval healing of the extra-articular distal radial metadiaphysis fracture. Reviewed by: Graeme Kenny MD on 03/16/2024 3:13 PM PDT Approved by: Graeme Kenny MD on 03/16/2024 3:13 PM PDT Station ID: [id number]
== END 2024-03-16 13:39 | disposition home or self-care (01) ==
LOC: DI.S 13:38
PROVIDERS: ATTEND Orthopaedic Surgery
DX: S52.531D Colles' fracture of right radius, subsequent encounter for closed fracture with routine healing (principal)